=== PATIENT | female | born 1970 | race Caucasian/White ===

== ENCOUNTER 2017-05-27 09:50 | Observation (INO) | payer OTHER ==
[~2017-05-27] VITALS: Ht 170.2 cm; Wt 55.0 kg
[2017-05-27 09:52] VITALS: BP 137/84; PULSE 81; RESP 16; TEMP 98.6; O2SAT 100
[2017-05-27] MEDS ORDERED: SODIUM CHLORIDE 0.9% FLUSH 10 ML FLUSH IVF PRN (10:30)
[2017-05-27 10:42] VITALS: BP_SYST 114; BP_SYST 121; BP_DIAS 63; BP_DIAS 66; PULSE 68; RESP 17; O2SAT 100
--- NOTE | 2017-05-27 10:49 | PD ---
HPI Chief Complaint: Chest Pain Time Seen by Provider: 10:27 Travel History International Travel<30 days: No Contact w/Intl Traveler<30days: No Traveled to known affect area: No History of Present Illness HPI 46yo W/F presented to the ED for chest pain. Pt stated that her chest pain started around 8:00am while at work. She reported to her school nurse, who took her BP of 120/70s and was told to wait about 30mins to see if it resolved. Pt stated that her pain was no relieving so she came to the hospital. She describes the pain more as a pressure, waxing and waning in nature, and rated it a 7-8/10. The pain is localized to her left chest and radiates to her back. Pt does not have any medical history, does not take any medications or OCPs. Never a smoker and socially drinks. She has a significant family history of CVD , with her mother, father and brother having MIs. She reports chest pain and SOB. She denies any nausea, vomiting, headache, blurred vision, abdominal pain, palpitations or pleuritic pain. Modifying Factors: None Associated Signs & Symptoms: Chest pain Risk Factors: Family history of cardiac disease early PFSH Past Medical History Medical History: Denies Significant Hx Influenza Vaccination: No ?: Not LMP: 04/28/17 Past Surgical History Surgical History: No Previous Surgery Social History Alcohol Use: No Tobacco Use: No Substance Use: No Allergies-Medications (Allergen,Severity, Reaction): Coded Allergies: No Known Allergies (Unverified , 05/27/17) Reported Meds & Prescriptions Reported Meds & Active Scripts Active No Active Prescriptions or Reported Medications Review of Systems Except as stated in HPI: all other systems reviewed are Neg Cardiovascular: Positive: Chest Pain or Discomfort Physical Exam Narrative GENERAL: 46yo W/F who WDWN and very pleasant. Alert and oriented x3. SKIN: Warm and dry. HEAD: Atraumatic. Normocephalic. NECK: Trachea midline. No JVD. Supple. CARDIOVASCULAR: Regular rate and rhythm. No murmurs or gallops. Pulses are present and equal bilaterally. RESPIRATORY: Mild accessory muscle use with respirations. Clear to auscultation. Breath sounds equal bilaterally. GASTROINTESTINAL: Abdomen soft, non-tender, nondistended. Hepatic and splenic margins not palpable. MUSCULOSKELETAL: Extremities without clubbing, cyanosis, or edema. No obvious deformities. NEUROLOGICAL: Awake and alert. No obvious cranial nerve deficits. Motor grossly within normal limits. Normal speech. PSYCHIATRIC: Appropriate mood and affect; insight and judgment normal. Data Data Last Documented VS Vital Signs Date Time Temp Pulse Resp B/P (MAP) Pulse Ox O2 Delivery O2 Flow Rate FiO2 05/27/17 10:42 68 17 114/63 (80) 100 121/66 (84) 05/27/17 10:31 Room Air 05/27/17 09:52 98.6 Orders Orders Electrocardiogram (05/27/17 10:27) Ckmb (Isoenzyme) Profile (05/27/17 10:27) Complete Blood Count With Diff (05/27/17 10:27) Comprehensive Metabolic Panel (05/27/17 10:27) Magnesium (Mg) (05/27/17 10:27) Prothrombin Time / Inr (Pt) (05/27/17 10:27) Act Partial Throm Time (Ptt) (05/27/17 10:27) Troponin I (05/27/17 10:27) Chest, Single Ap (05/27/17 10:27) Ecg Monitoring (05/27/17 10:27) Bilateral Bp Monitoring (05/27/17 10:27) Iv Access Insert/Monitor (05/27/17 10:27) Oximetry (05/27/17 10:27) Oxygen Administration (05/27/17 10:27) Sodium Chloride 0.9% Flush (Ns Flush) (05/27/17 10:30) Ed Urine Pregnancytest Poc (05/27/17 10:27) D-Dimer (05/27/17 10:59) Aspirin (Aspirin) (05/27/17 11:30) Urinalysis - C+S If Indicated (05/27/17 11:28) Ketorolac Inj (Toradol Inj) (05/27/17 11:45) Lipase (05/27/17 11:45) Admit Order (Ed Use Only) (05/27/17 12:30) Labs Laboratory Tests Test 05/27/17 10:35 05/27/17 11:39 White Blood Count 7.7 TH/MM3 Red Blood Count 3.94 MIL/MM3 Hemoglobin 12.2 GM/DL Hematocrit 36.0 % Mean Corpuscular Volume 91.2 FL Mean Corpuscular Hemoglobin 31.0 PG Mean Corpuscular Hemoglobin Concent 34.0 % Red Cell Distribution Width 12.7 % Platelet Count 244 TH/MM3 Mean Platelet Volume 8.9 FL Neutrophils (%) (Auto) 64.9 % Lymphocytes (%) (Auto) 25.4 % Monocytes (%) (Auto) 8.8 % Eosinophils (%) (Auto) 0.5 % Basophils (%) (Auto) 0.4 % Neutrophils # (Auto) 5.0 TH/MM3 Lymphocytes # (Auto) 2.0 TH/MM3 Monocytes # (Auto) 0.7 TH/MM3 Eosinophils # (Auto) 0.0 TH/MM3 Basophils # (Auto) 0.0 TH/MM3 CBC Comment DIFF FINAL Differential Comment Prothrombin Time 11.3 SEC Prothromb Time International Ratio 1.1 RATIO Activated Partial Thromboplast Time 23.3 SEC D-Dimer Quantitative (PE/DVT) 0.26 MG/L FEU Blood Urea Nitrogen 13 MG/DL Creatinine 0.79 MG/DL Random Glucose 91 MG/DL Total Protein 7.7 GM/DL Albumin 3.9 GM/DL Calcium Level 8.6 MG/DL Magnesium Level 2.0 MG/DL Alkaline Phosphatase 52 U/L Aspartate Amino Transf (AST/SGOT) 20 U/L Alanine Aminotransferase (ALT/SGPT) 23 U/L Total Bilirubin 0.9 MG/DL Sodium Level 136 MEQ/L Potassium Level 3.7 MEQ/L Chloride Level 102 MEQ/L Carbon Dioxide Level 27.7 MEQ/L Anion Gap 6 MEQ/L Estimat Glomerular Filtration Rate 79 ML/MIN Total Creatine Kinase 54 U/L Troponin I LESS THAN 0.02 NG/ML Lipase 123 U/L Urine Color YELLOW Urine Turbidity HAZY Urine pH 7.0 Urine Specific [place] 1.019 Urine Protein NEG mg/dL Urine Glucose (UA) NEG mg/dL Urine Ketones TRACE mg/dL Urine Occult Blood NEG Urine Nitrite NEG Urine Bilirubin NEG Urine Urobilinogen LESS THAN 2.0 MG/DL Urine Leukocyte Esterase NEG Urine RBC 2 /hpf Urine WBC LESS THAN 1 /hpf Urine Squamous Epithelial Cells 5 /hpf Urine Mucus FEW /lpf Microscopic Urinalysis Comment CULT NOT INDICATED MDM Medical Decision Making Medical Screen Exam Complete: Yes Emergency Medical Condition: Yes Medical Record Reviewed: Yes Interpretation(s) EKG shows NSR, no ST elevation or depression, and no arrhythmias. No significant T-wave inversions. Laboratory Tests Test 05/27/17 10:35 05/27/17 11:39 Red Blood Count 3.94 MIL/MM3 (4.00-5.30) Monocytes (%) (Auto) 8.8 % (0.0-8.0) Activated Partial Thromboplast Time 23.3 SEC (24.3-30.1) Estimat Glomerular Filtration Rate 79 ML/MIN (>89) Troponin I LESS THAN 0.02 NG/ML Urine Turbidity HAZY (CLEAR) Urine Ketones TRACE mg/dL (NEG) Urine Mucus FEW /lpf (OCC) Last 24 hours Impressions Chest X-Ray 05/27/17 1027 Signed Impressions: Service Date/Time: Saturday, May 27, 2017 10:56 - CONCLUSION: No acute cardiopulmonary abnormality is identified. Ez Lee MD Differential Diagnosis ACS versus costochondritis versus pneumonia versus PE Narrative Course EKG did not show any signs of dysrhythmias or any signs of acute ST-T changes. D-dimer is negative. Chest x-ray did not show any signs of acute pneumonia or other acute pulmonary processes. Abdomen is fairly benign and I'm not suspecting acute intra-abdominal process. At this point, my plan would be to admit the patient to the chest pain center for further evaluation of chest pain. Patient was given aspirin in the ER. Diagnosis Primary Impression: Chest pain Admitting Information Admitting Physician Requests: Admit Scripts No Active Prescriptions or Reported Meds Rosario Miller MD May 27, 2017 10:49
[2017-05-27 11:21] LABS: BASOPHIL % 0.4 % (0.0-2.0); EOSINOPHIL % 0.5 % (0.0-4.0); HEMOGLOBIN 12.2 GM/DL (11.6-15.3); LYMPH % 25.4 % (9.0-44.0); MEAN CELL VOLUME 91.2 FL (80.0-100.0); MEAN PLATELET VOLUME 8.9 FL (7.0-11.0); MONO % 8.8 % (0.0-8.0); MONOCYTE # 0.7 TH/MM3 (0-0.9); NEUT % 64.9 % (16.0-70.0); PLATELET COUNT 244 TH/MM3 (150-450); RED BLOOD COUNT 3.94 MIL/MM3 (4.00-5.30); RED CELL DISTRIBUTION WIDTH 12.7 % (11.6-17.2); WHITE BLOOD COUNT 7.7 TH/MM3 (4.0-11.0)
[2017-05-27] MEDS ORDERED: ASPIRIN 325 MG TAB PO ONE (11:30)
[2017-05-27 11:32] LABS: INTERNATIONAL NORMALIZED RATIO 1.1 RATIO; PROTHROMBIN TIME - PATIENT 11.3 SEC (9.8-11.6)
[2017-05-27] MEDS ORDERED: KETOROLAC TROMETHAMINE 30 MG/ML (IVP) VIAL IV PUSH ONE (11:45)
[2017-05-27 11:48] LABS: ALBUMIN 3.9 GM/DL (3.4-5.0); ALT (GPT) 23 U/L (10-53); AST (GOT) 20 U/L (15-37); BICARBONATE 27.7 MEQ/L (21.0-32.0); BLOOD UREA NITROGEN 13 MG/DL (7-18); CALCIUM 8.6 MG/DL (8.5-10.1); CHLORIDE 102 MEQ/L (98-107); CREATININE 0.79 MG/DL (0.50-1.00); GLOMERULAR FILTRATION RATE 79 ML/MIN (>89); GLUCOSE,RANDOM 91 MG/DL (74-106); SODIUM (NA) 136 MEQ/L (136-145)
[2017-05-27 11:52] LABS: ALKALINE PHOSPHATASE 52 U/L (45-117); TOTAL BILIRUBIN ADULT 0.9 MG/DL (0.2-1.0); TOTAL PROTEIN 7.7 GM/DL (6.4-8.2); TROPONIN I LESS THAN 0.02 NG/ML (0.02-0.05)
--- NOTE | 2017-05-27 12:04 | RADRPT ---
EXAM DATE/TIME: 05/27/2017 10:56 [facility] COMPARISON: No previous studies available for comparison. INDICATIONS : Chest pain, shortness of breath. MEDICAL HISTORY : None. SURGICAL HISTORY : None. ENCOUNTER: Initial ACUITY: 1 day PAIN SCORE: 7/10 LOCATION: Left chest FINDINGS: Portable AP view of the chest demonstrates a normal-sized cardiac silhouette. No effusion, consolidat ion, or pneumothorax is visualized. The bones and soft tissues demonstrate no acute abnormality. CONCLUSION: No acute cardiopulmonary abnormality is identified. Ez Lee MD on May 27, 2017 at 11:57 Board Certified Radiologist. This report was verified electronically.
[2017-05-27 12:10] LABS: BILIRUBIN, URINE NEG (NEG); BLOOD, URINE NEG (NEG); GLUCOSE,URINE NEG (NEG); KETONE, URINE TRACE mg/dL (NEG); MUCUS URINE FEW /lpf (OCC); NITRITE,URINE NEG (NEG); SQUAMOUS EPITHELIAL CELL URINE 5 /hpf (0-5); URINE COLOR YELLOW (YELLW/STRAW); URINE LEUKOCYTE ESTERASE NEG (NEG)
[2017-05-27] MEDS ORDERED: ACETAMINOPHEN/HYDROcodone 325 MG/7.5 MG TAB PO PRN (14:15)
[2017-05-27] MEDS ORDERED: ONDANSETRON HCL 4 MG/2 ML VIAL IV PUSH PRN (14:15)
[2017-05-27] MEDS ORDERED: ACETAMINOPHEN 500 MG CPLT PO PRN (14:15)
--- NOTE | 2017-05-27 14:15 | HHI.HP ---
HPI Primary Care Physician No Primary Care Physician Chief Complaint Chest pain History of Present Illness This is a 46-year-old female that presents to ED via private vehicle with complaint of developing a chest discomfort around 7:15 this morning while driving to work. She works as an elementary schoolteacher. Describes a left- sided chest pressure. Worse level is 8 out of 10. Denies shortness of breath but states it felt as if she needed a taken a deeper breath. Denied nausea or diaphoresis. Found nothing in particular to worsen or improve it. States she does feel better after getting pain medication in the ED. She was given IV Toradol. Denies history of heart disease. Cannot recall prior cardiac workup. States her multiple family members with heart disease. States her brother had an MS at age 39. Both parents have coronary disease and had stents and her father also needing a bypass in his 60s. Denies recent travel. Denies fever or chills. Denies . Review of Systems General: Patient denies fevers, chills recent, and recent travel HEENT: Patient denies headache, sore throat, difficulty swallowing. Cardiovascular: Has the chest discomfort as mentioned above. Denies sensation of heart beating rapidly or irregularly. No syncope. Denies diaphoresis. Respiratory: Denies shortness of breath or inspirational chest discomfort. Denies coughing wheezing or hemoptysis. GI: Patient denies nausea, vomiting, diarrhea, abdominal pain, bloody stools. Musculoskeletal: Patient denies joint pain or edema. Denies calf pain or edema. Neurovascular: Patient denies numbness, tingling, weakness in extremities. Denies headache. Endocrine: Denies polyuria and polydipsia. Hematologic: Denies easy bruising. Skin: Denies rash or itching. Past Family Social History Allergies: Coded Allergies: No Known Allergies (Unverified , 05/27/17) Past Medical History Denies hypertension, hyperlipidemia, diabetes, and known CAD. Past Surgical History Noncontributory. Reported Medications Reported Meds & Active Scripts Active No Active Prescriptions or Reported Medications Active Ordered Medications Current Medications Medications (Trade) Dose Ordered Sig/Ruth Route Start Time Stop Time Status Last Admin (NS Flush) 2 ml UNSCH PRN IVF 05/27/17 10:30 (Tylenol) 500 mg Q4H PRN PO 05/27/17 14:15 ([place] 7.5-325 Mg) 1 tab Q4H PRN PO 05/27/17 14:15 UNV (Zofran Inj) 4 mg Q6H PRN IV PUSH 05/27/17 14:15 UNV Family History Her brother had an MS at age 39. Both parents of CAD. Her brother had an MS at age 62 with CABG. Her mother has had stents. Social History Lifetime nonsmoker. Denies alcohol or illicit drugs. She is a third grade schoolteacher. Physical Exam Vital Signs Vital Signs Date Time Temp Pulse Resp B/P (MAP) Pulse Ox O2 Delivery O2 Flow Rate FiO2 05/27/17 13:39 (80) 05/27/17 10:42 68 17 114/63 (80) 100 121/66 (84) 05/27/17 10:31 (101) Room Air 05/27/17 10:31 98 Room Air 05/27/17 10:07 74 05/27/17 09:52 98.6 81 16 137/84 (101) 100 Physical Exam GENERAL: This is a well-nourished, well-developed patient, in no apparent distress. Patient speaks in clear complete sentences. Patient is pleasant. He should is examined with a female nurse engraver copperplate at bedside. HEENT: Head is atraumatic and normocephalic. Neck is supple without lymphadenopathy and trachea is midline. No JVD or carotid bruits. CARDIOVASCULAR: Regular rate and rhythm without murmurs, gallops, or rubs. RESPIRATORY: Clear to auscultation. Breath sounds equal bilaterally. No wheezes , rales, or rhonchi. Chest wall is tender more so left lateral chest wall and inferior of the left breast. No use of accessory muscles. GASTROINTESTINAL: Abdomen is nontender, nondistended. Abdomen soft. No obvious pulsatile mass or bruit. No CVA tenderness. Strong femoral pulses bilaterally. Normal bowel sounds in all quadrants. MUSCULOSKELETAL: Patient is moving upper and lower extremities freely. No calf tenderness or edema, no Homans sign. Strong pulses in upper and lower extremities. NEUROLOGICAL: Patient is alert and oriented. Cranial nerves 2-12 are grossly intact. No focal deficits and speech is clear. SKIN: No rash and turgor is normal. Laboratory Laboratory Tests Test 05/27/17 10:35 05/27/17 11:39 White Blood Count 7.7 Red Blood Count 3.94 Hemoglobin 12.2 Hematocrit 36.0 Mean Corpuscular Volume 91.2 Mean Corpuscular Hemoglobin 31.0 Mean Corpuscular Hemoglobin Concent 34.0 Red Cell Distribution Width 12.7 Platelet Count 244 Mean Platelet Volume 8.9 Neutrophils (%) (Auto) 64.9 Lymphocytes (%) (Auto) 25.4 Monocytes (%) (Auto) 8.8 Eosinophils (%) (Auto) 0.5 Basophils (%) (Auto) 0.4 Neutrophils # (Auto) 5.0 Lymphocytes # (Auto) 2.0 Monocytes # (Auto) 0.7 Eosinophils # (Auto) 0.0 Basophils # (Auto) 0.0 CBC Comment DIFF FINAL Differential Comment Prothrombin Time 11.3 Prothromb Time International Ratio 1.1 Activated Partial Thromboplast Time 23.3 D-Dimer Quantitative (PE/DVT) 0.26 Blood Urea Nitrogen 13 Creatinine 0.79 Random Glucose 91 Total Protein 7.7 Albumin 3.9 Calcium Level 8.6 Magnesium Level 2.0 Alkaline Phosphatase 52 Aspartate Amino Transf (AST/SGOT) 20 Alanine Aminotransferase (ALT/SGPT) 23 Total Bilirubin 0.9 Sodium Level 136 Potassium Level 3.7 Chloride Level 102 Carbon Dioxide Level 27.7 Anion Gap 6 Estimat Glomerular Filtration Rate 79 Total Creatine Kinase 54 Troponin I LESS THAN 0.02 Lipase 123 Urine Color YELLOW Urine Turbidity HAZY Urine pH 7.0 Urine Specific [place] 1.019 Urine Protein NEG Urine Glucose (UA) NEG Urine Ketones TRACE Urine Occult Blood NEG Urine Nitrite NEG Urine Bilirubin NEG Urine Urobilinogen LESS THAN 2.0 Urine Leukocyte Esterase NEG Urine RBC 2 Urine WBC LESS THAN 1 Urine Squamous Epithelial Cells 5 Urine Mucus FEW Microscopic Urinalysis Comment CULT NOT INDICATED Result Diagram: 05/27/17 1035 05/27/17 1035 Imaging Last 48 hours Impressions Chest X-Ray 05/27/17 1027 Signed Impressions: Service Date/Time: Saturday, May 27, 2017 10:56 - CONCLUSION: No acute cardiopulmonary abnormality is identified. Ez Lee MD Course Initial EKG is sinus rhythm without significant ST segment depressions or elevations. Caprini VTE Risk Assessment Caprini VTE Risk Assessment: No/Low Risk (score <= 1) Caprini Risk Assessment Model Point Value = 1 Point Value = 2 Point Value = 3 Point Value = 5 Age 41-60 Minor surgery BMI > 25 kg/m2 Swollen legs Varicose veins or History of unexplained or recurrent spontaneous Oral contraceptives or hormone replacement Sepsis (< 1 month) Serious lung disease, including pneumonia (< 1 month) Abnormal pulmonary function Acute myocardial infarction Congestive heart failure (< 1 month) History of inflammatory bowel disease Medical patient at bed rest Age 61-74 Arthroscopic surgery Major open surgery (> 45 min) Laparoscopic surgery (> 45 min) Malignancy Confined to bed (> 72 hours) Immobilizing plaster cast Central venous access Age >= 75 History of VTE Family history of VTE Factor V Leiden Prothrombin [id number] Lupus anticoagulant Anticardiolipin antibodies Elevated serum homocysteine Heparin-induced thrombocytopenia Other congenital or acquired thrombophilia Stroke (< 1 month) Elective arthroplasty Hip, pelvis, or leg fracture Acute spinal cord injury (< 1 month) Prophylaxis Regimen Total Risk Factor Score Risk Level Prophylaxis Regimen 0-1 Low Early ambulation 2 Moderate Order ONE of the following: *Sequential Compression Device (SCD) *Heparin 5000 units SQ BID 3-4 Higher Order ONE of the following medications: *Heparin 5000 units SQ TID *Enoxaparin/Lovenox 40 mg SQ daily (WT < 150 kg, CrCl > 30 mL/min) *Enoxaparin/Lovenox 30 mg SQ daily (WT < 150 kg, CrCl > 10-29 mL/min) *Enoxaparin/Lovenox 30 mg SQ BID (WT < 150 kg, CrCl > 30 mL/min) AND/OR *Sequential Compression Device (SCD) 5 or more Highest Order ONE of the following medications: *Heparin 5000 units SQ TID (Preferred with Epidurals) *Enoxaparin/Lovenox 40 mg SQ daily (WT < 150 kg, CrCl > 30 mL/min) *Enoxaparin/Lovenox 30 mg SQ daily (WT < 150 kg, CrCl > 10-29 mL/min) *Enoxaparin/Lovenox 30 mg SQ BID (WT < 150 kg, CrCl > 30 mL/min) AND *Sequential Compression Device (SCD) Assessment and Plan Assessment and Plan * Chest pain: Patient will have serial cardiac enzymes and EKGs for ruling out purposes. She will be evaluated by Dr. Igor Lee of cardiology in the chest pain center and have an ETT. Patient will be discharged if stress test is non-ishemic. She should follow up with PCP and return to ED for interval issues. Patient is stable at this time. She is agreeable to this plan. Alan Foss May 27, 2017 14:15
--- NOTE | 2017-05-27 15:48 | HHI.DCPOC ---
Discharge Care Plan Diagnosis: (1) Chest pain, atypical Goals to Promote Your Health * To prevent worsening of your condition and complications * To maintain your health at the optimal level Directions to Meet Your Goals Take your medications as prescribed Follow your dietary instruction Follow activity as directed Keep your appointments as scheduled Take your immunizations and boosters as scheduled If your symptoms worsen call your PCP, if no PCP go to Urgent Care Center or Emergency Room Smoking is Dangerous to Your Health. Avoid second hand smoke Call the 24-hour hour crisis hotline for domestic abuse at Alan Foss May 27, 2017 15:48
--- NOTE | 2017-05-27 16:16 | TR ---
Date Performed: 05/27/2017 Time Performed: 15:15:54 DOCTOR: Igor Lee DRUG LIST: CLINICAL HISTORY: REASON FOR TEST: Chest pain REASON FOR ENDING: OBSERVATION: CONCLUSION: ESTEFANY PROTOCOL NO CP. TEST STOPPED AFTER EXCEEDING GOAL HR SECONDARY TO SOB AND LEG FATIGUE.Maximum CC=390 % Max HR Achieved=97.0% Maximum TC=330/92 Total Exercise Time=8:00 COMMENTS: Patient exercised using the Estefany protocol. No electrocardiographic changes were seen to suggest ischemia. Hemodynamic response to exercise was normal. No significant arrhythmia was prese nt.
[2017-05-27 16:48] VITALS: BP 110/62; PULSE 65; RESP 18; TEMP 97; O2SAT 99
--- NOTE | 2017-05-28 15:25 | EKG ---
Date Performed: 05/27/2017 Time Performed: 10:01:39 PTAGE: 46 years EKG: Sinus rhythm NORMAL ECG NO PREVIOUS TRACING DOCTOR: Amauri Navarro Interpretating Date/Time 05/28/2017 15:23:56
== END 2017-05-27 18:40 | disposition home or self-care (01) ==
LOC: NEPC 09:50 → NEDA 12:32 → NEPGCP 14:13
PROVIDERS: ADMIT Internal Medicine Cardiovascular Disease; ATTEND Internal Medicine Cardiovascular Disease
DX: R07.89 Other chest pain (principal); R06.02 Shortness of breath; Z82.49 Family history of ischemic heart disease and other diseases of the circulatory system
CPT/HCPCS: 71045; 80053; 81001; 82550; 83690; 83735; 84484; 84703; 85025; 85379; 85610; 85730; 93005; 93017; 96374; 99285; G0378; J1885